=== PATIENT | male | born 1950 | race Hispanic/Latino ===

== ENCOUNTER → 2024-07-25 | Outpatient (CLI) | payer OTHER | END | disposition home or self-care (01) | LOC: SHCH 07:35 | PROVIDERS: ATTEND Student in an Organized Health Care Education/Training Program | DX: R55 Syncope and collapse (principal) | CPT/HCPCS: 93306 ==

== ENCOUNTER → 2024-08-13 | Outpatient (CLI) | payer OTHER ==
[2024-08-13 11:54] LABS: HEMOGLOBIN A1C 7.8 % (4.0-6.0)
[2024-08-13 12:03] LABS: ALBUMIN 3.4 g/dL (3.5-5.0); BILIRUBIN,TOTAL 0.3 mg/dL (0.2-1.0); CREATININE 1.1 mg/dL (0.5-1.3); POTASSIUM 4.3 mmol/L (3.5-5.1); TOTAL PROTEIN, SERUM 7.1 g/dL (6.0-8.3)
== END | disposition home or self-care (01) ==
LOC: LAB 09:45
PROVIDERS: ATTEND Student in an Organized Health Care Education/Training Program
DX: E11.65 Type 2 diabetes mellitus with hyperglycemia (principal); E78.5 Hyperlipidemia, unspecified; R55 Syncope and collapse
CPT/HCPCS: 36415; 80053; 80061; 83036

== ENCOUNTER → 2024-08-16 | Outpatient (CLI) | payer OTHER ==
[~2024-08-16] MED LIST: IOHEXOL 350 MG/ML 100ML INFUS..BTL IV ONE; metoPROLOL tartRATE 1 MG/ML 5ML VIAL IV ONE
--- NOTE | 2024-08-16 09:50 | HMCIMG ---
CT CARDIAC ANGIO W/CONT. CCTA HISTORY: Syncope COMPARISON: None TECHNIQUE: Multiple sequential axial images of the chest were obtained along with the CT angiogram of the chest study. Patient was given 100 cc of Omnipaque through intravenous route. FINDINGS: There is no evidence of pulmonary nodule or parenchymal disease. No pleural effusion or pericardial effusion is seen. There is no evidence of pneumothorax. There are normal size mediastinal and hilar lymph nodes. The heart is not enlarged. Degenerative changes of the thoracolumbar spine are present. IMPRESSION: 1. No evidence of pulmonary nodule or effusion is seen. Please see CT angiogram report of coronary arteries.
== END | disposition home or self-care (01) ==
LOC: RAH 07:59 → EDUNIT# 08:30
PROVIDERS: ATTEND Student in an Organized Health Care Education/Training Program
DX: R55 Syncope and collapse (principal); M47.815 Spondylosis without myelopathy or radiculopathy, thoracolumbar region
CPT/HCPCS: 75574; J3490 ×2; Q9967

== ENCOUNTER 2024-10-01 06:39 | Observation (INO) | payer OTHER ==
[2024-09-27 12:37] VITALS: BP 128/55; PULSE 98; RESP 18; TEMP 97.2
[2024-09-27 13:12] LABS: BASOPHILS # (AUTO) 0.03 K/uL (0.00-0.20); BASOPHILS % (AUTO) 0.3 % (0.0-5.0); EOSINOPHILS # (AUTO) 0.09 K/uL (0.00-0.70); HEMATOCRIT 43.7 % (42-54); IMMATURE GRANULOCYTE ABSOLUTE 0.03 K/uL (0-1); LYMPHOCYTES # (AUTO) 1.7 K/uL (1.0-4.8); LYMPHOCYTES % (AUTO) 18.4 % (21.0-51.0); MEAN CORPUSCULAR HEMOGLOBIN 30.4 pg (27.0-33.0); MEAN CORPUSCULAR HGB CONC 32.3 g/dL (32.0-36.0); MEAN CORPUSCULAR VOLUME 94.2 fL (79-99); MONOCYTES # (AUTO) 0.5 K/uL (0.1-1.0); MONOCYTES % (AUTO) 5.3 % (3.0-13.0); NEUTROPHILS # (AUTO) 6.9 K/uL (1.8-7.7); NEUTROPHILS % (AUTO) 74.7 % (40.0-77.0); PLATELET COUNT (AUTO) 213 K/uL (130-400); RED BLOOD CELL COUNT(AUTO) 4.64 MIL/uL (4.50-6.20); RED CELL DISTRIBUTION WIDTH 14.6 % (11.0-15.5); WHITE BLOOD COUNT (AUTO) 9.2 K/uL (4.8-10.8)
[2024-09-27 13:23] LABS: CREATININE 1.2 mg/dL (0.5-1.3); INR <= 0.93 (0.85-1.15); POTASSIUM 4.4 mmol/L (3.5-5.1); PROTHROMBIN TIME 10.4 SEC (9.6-11.6)
[2024-09-27 13:24] LABS: PARTIAL THROMBOPLASTIN TIME 29.5 SEC (26.3-35.5)
[2024-09-27 13:35] LABS: APPEARANCE,URINE CLEAR (CLEAR); BILIRUBIN,URINE NEGATIVE (NEGATIVE); COLOR,URINE YELLOW (YELLOW); GLUCOSE, URINE (UA) >=1000 mg/dL (NEGATIVE); KETONES,URINE NEGATIVE (NEGATIVE); LEUKOCYTE ESTERASE ,URINE NEGATIVE Leu/uL (NEGATIVE); NITRATE,URINE NEGATIVE (NEGATIVE); OCCULT BLOOD,URINE NEGATIVE (NEGATIVE); UROBILINOGEN,URINE 0.2 mg/dL (0.2-1.0)
--- NOTE | 2024-09-27 13:35 | EKG ---
[facility] Test Date: 2024-09-27 Test Time: 13:21:29 Pat Name: ROLANDO PENG Department: PENDING S[facility] TO [facility] Room: Gender: M Interlibrary Loan Specialist: [id number] : 1950 Requested By: KILEY MCKEON Order Number: [id number] Reading MD: Placido Masterson Measurements Intervals [place] Rate: 98 P: 56 MO: 193 QRS: 82 QRSD: 101 T: 29 QT: 355 QTc: 452 Interpretive Statements Sinus rhythm No previous ECG available for comparison Electronically Signed On 09-27-2024 19:49:16 REWEAVER by Placido Masterson Please click the below link to view image of tracing.
[2024-09-27 13:36] LABS: ADD UA MICROSCOPIC YES; PROTEIN,URINE NEGATIVE (NEGATIVE)
[2024-09-27 13:38] LABS: MUCUS,URINE RARE LPF (None Seen); RBC,URINE 0-1 /HPF (0-1); SQUAMOUS EPITHELIAL CELL,UR RARE /HPF (0-2); WBC,URINE 0-1 /HPF (0-1)
[2024-09-27 13:39] LABS: B-TYPE NATRIURETIC PEPTIDE 34 pg/mL (0-100)
--- NOTE | 2024-09-28 12:15 | HMCIMG ---
CHEST 1VW REASON: PRE OP COMPARISON: None. FINDINGS: Single view of the chest was obtained. Lungs are clear. Heart size is normal. There is no pulmonary vascular congestion. Mediastinum and bony thorax appear unremarkable. IMPRESSION: 1. Normal single view chest x-ray.
[2024-10-01] VITALS (16 sets, daily range): BP systolic 99–133; BP diastolic 50–84; PULSE 69–95; RESP 15–23; TEMP 97.1–99.1; O2SAT 97–100
[~2024-10-01] VITALS: Ht 180.3 cm; Wt 84.4 kg
[~2024-10-01 06:39] MED LIST changes: +ASPI-1443 PO; +EMPA25TA PO; +GLIP5TAB15 PO; +INSU3INS3 SQ; -IOHEXOL 350 MG/ML 100ML INFUS..BTL IV ONE; +METF-446 PO; +MULT-1367 PO; +ROSU10TA72 PO; +SIME80TA12 PO; +TIRZ10PE SQ; -metoPROLOL tartRATE 1 MG/ML 5ML VIAL IV ONE
[2024-10-01] MEDS ORDERED: IOHEXOL 350 MG/ML 100ML INFUS..BTL IV ONE ×2 (08:13→10:04)
[2024-10-01] MEDS ORDERED: LIDOCAINE HCL 400MG/20ML VIAL ONE (08:13)
[2024-10-01] MEDS ORDERED: VERAPAMIL HCL 2.5 MG/ML VIAL ONE (08:13)
[2024-10-01] MEDS ORDERED: HEParin-NS 1,000 UNIT/500 ML 1,000 ML IV ONE (08:13)
[2024-10-01] MEDS ORDERED: HEParin 10,000 UNIT/10ML (1,000 UNIT/ML) VIAL ONE (08:13)
[2024-10-01] MEDS ORDERED: NITROGLYCERIN 50MG VIAL ONE (08:14)
[2024-10-01] MEDS ORDERED: MIDAZOLAM HCL 1 MG/ML 2ML VIAL ONE (08:34)
[2024-10-01] MEDS ORDERED: FENTanyl CITRate PF 50 MCG/1 ML 2ML VIAL ONE (08:34)
[2024-10-01] MEDS: 0.9%NACL 1000ML 1,000 ML IV SCH ×2 (08:45→11:00)
[2024-10-01] MEDS ORDERED: EPTIFIBATIDE 2 MG/ML 10 ML VIAL IVP ONE (09:29)
[2024-10-01] MEDS ORDERED: EPTIFIBATIDE 75MG/100ML BOTTLE 100 ML IV ONE (09:29)
[2024-10-01] MEDS ORDERED: cloPIDOgrel 300MG TAB ONE (09:29)
[2024-10-01] MEDS ORDERED: NOREPINEPHRINE BITARTRATE 1 MG/1 ML ML IV ONE (10:02)
[2024-10-01] MEDS ORDERED: DOPamine HCL 400 MG/D5%-WATER 0 ML IV ONE (10:03)
--- NOTE | 2024-10-01 10:56 | PRN ---
PROCEDURE REPORT DATE OF PROCEDURE: Oct 01, 2024 CUPOLA TENDER HELPER: [Kiley olea MD ] PROCEDURE PERFORMED: Conscious sedation Ultrasound guided right radial artery access Selective left coronary artery angiogram Selective right coronary artery angiogram Left heart catheterization Status post IVUS guided PTCA/PCI of the prox to mid LAD x2 (3 x 30 mm subha Fron tier drug-eluting stent and 3 x 15 mm subha drug-eluting stent overlapping fashion) Complicated by LAD perforation which was managed successfully with PTCA/PCI x2 covered stents (3 x 20 and 3.5 x 20 mm papyrus covered stents) TR band 13 chintan over right radial artery INDICATION: Abnormal coronary CTA DESCRIPTION OF PROCEDURE: After informed consent was obtained, the patient was prepped and draped in the usual sterile fashion. A 6 Cypriot arterial sheath was inserted in the right radial artery using ultrasound guidance with first pass wall puncture. The arterial sheath was aspirated and flushed. A 6 Cypriot JL 3.5 was then advanced to the ascending aorta over an exchange length J-tip guidewire, was aspirated and flushed, and was used for selective coronary angiograms in multiple obliquities. A JR-4 was advanced in a similar fashion to the ascending aorta over the J-tipped guidewire and was used for selective right coronary angiograms in multiple oblique views with findings as outlined below. The JR-4 catheter advanced into the LV and pressures were obtained with a pull-back across the aortic valve. Following review of all the images decision was made to intervene on patient's critical prox to mid LAD disease. We exchanged the diagnostic catheters for a six Cypriot XB three guide catheter which was used to select engage the left main coronary artery. We provided a total of 9000 units of IV heparin, 300 mg of Plavix, and double bolus and infusion of Integrilin during the procedure. Following therapeutic ACT we advanced a [place] into the distal LAD under fluoroscopic guidance. We then pre-dilated the prox to mid LAD stenosis using a 3 x 20 mm compliant balloon to nominal pressures. We then proceeded with IVUS imaging of the mid to distal LAD as well as proximal LAD and left main. We noted a mid LAD of max diameter of 3.5 mm tapering to 3 mm. We deployed a 3 x 30 mm subha [place] drug-eluting stent within the mid LAD to nominal pressures. We noted residual disease just beyond the stent edge so we deployed a 2nd 3 x 15 mm subha [place] drug-eluting stent to nominal pressures. Following stent deployment we noted a large mid to distal LAD perforation. Patient was found to have significant ST elevations anteriorly with mild epigastric pain. We advanced a 3.5 x 27 mm noncompliant balloon which was inflated to sub nominal pressures of 6 CHINTAN in the distal segment of the stent for a total of 2 minutes to tamponade the vessel. We performed further post dilatation with a three five NC to nominal pressures proximally for a total of 20 seconds. Repeat angiogram revealed residual perforation within the mid segment of the LAD. We performed repeat balloon tamponade inflation for an additional minute with similar results. At this point we decided to treat the perforation with a 3 x 20 mm papyrus covered stent which was deployed to nominal pressures for a total of 30 seconds. Repeat angiogram noted residual ongoing perforation so we deployed a 2nd covered stent measuring 3.5 x 20 mm papyrus proximally to nominal pressures. We noted tamponade of the vessel and resolution of the ST elevations. Patient remained hemodynamically stable and his symptoms resolved. We performed a limited 2D echocardiogram during the procedure revealing no evidence of a pericardial effusion and he had a preserved systolic function on prelim review. Given these findings and gnosticist of KLAUDIA three flow the decision was made to terminate the procedure. All wires and catheters removed from the body and a TR band was placed over right radial artery. Patient tolerated procedure well and was transferred to pharmacy laboratory technician holding we will he be admitted overnight for observation and we will perform repeat 2D echocardiogram FLUOROSCOPY TIME: 16.1 min LEFT HEART HEMODYNAMICS: LVEDP 13 mm Hg and no gradient Ao CORONARY ANGIOGRAM: LEFT MAIN: Patent and 0% stenosis. Gives rise to LCx and LAD. LEFT ANTERIOR DESCENDING: Large vessel giving rise to two Diagonal branches. 50% ostial to prox becoming 90-95% in the prox to mid segment followed by 60 70% in the mid to distal segment. D1 and D2 were large and D1 has 50-60% prox to mid stenosis LEFT CIRCUMFLEX: Large and gives rise to three OM branches. Luminal irregularities. The OM2 are large and widely patent RIGHT CORONARY ARTERY: Large, dominant vessel giving rise to PDA and PL branches. There is a 40-50% mid RCA stenosis followed by luminal irregularities. PDA and PLB are patent HEMOSTASIS: TR band 12 chintan over right radial artery INTERVENTIONS: Status post IVUS guided PTCA/PCI of the prox to mid LAD x2 (3 x 30 mm subha [place] drug-eluting stent and 3 x 15 mm subha drug-eluting stent overlapping fashion) COMPLICATIONS: Complicated by LAD perforation which was managed successfully with PTCA/PCI x2 covered stents (3 x 20 and 3.5 x 20 mm papyrus covered stents) FINDINGS: Normal coronary anatomy and mild non-obstructive CAD. ESTIMATED BLOOD LOSS: 5 cc RECOMMENDATIONS/INSTRUCTIONS: Aggressive risk factor modification. Patient will require six months of dap (aspirin 81 mg daily/Plavix 75 mg daily) in addition to high-intensity statin therapy Given his LAD perforation which was successfully treated with two covered stents we performed a limited 2D echocardiogram during the procedure revealing no evidence of pericardial effusion We will admit patient overnight to observation and perform limited repeat 2D echocardiogram to assess for pericardial effusion If no pericardial effusion the patient remains asymptomatic we will plan for discharge tomorrow morning CONTRAST DELIVERED TO PATIENT (mL): 250cc KILEY Perez MD, MD Oct 01, 2024 10:56
[2024-10-01] MEDS ORDERED: GLUCAGON 1MG KIT 1 MG ML IM PRN (11:00)
[2024-10-01] MEDS ORDERED: DEXTROSE 50%-WATER 50 ML DISP.SYRIN IV PRN (11:00)
[2024-10-01] MEDS: SIMETHICONE 80 MG TAB.CHEW PO SCH (13:00)
--- NOTE | 2024-10-01 13:35 | NUR ---
CALLED TO ROOM BY PATIENT. NOTED PATIENT BLEEDING UNDER VASC BAND. 3 ML OF AIR INFLATED INTO VASC BAND, HEMOSTASIS ACHIEVED. INSTRUCTED PATIENT AND FAMILY TO CALL IF NOTED ANY FURTHER BLEEDING. PATIENT INSTRUCTED TO LEAVE HAND RESTING ON RIGHT SIDE WITH PALM FACING UP, VERBALIZED UNDERSTANDING. WILL CONTINUE TO MONITOR
--- NOTE | 2024-10-01 16:48 | NUR ---
HOSPITALIST PAGED AT THIS TIME
--- NOTE | 2024-10-01 16:50 | NUR ---
VASTBAND REMOVED AT THIS TIME VSS NAD SITE ASYMPTOMATIC.
--- NOTE | 2024-10-01 17:14 | HMCSR ---
APPROVED REPORT EXAM: Limited Two-dimensionalechocardiogram. INDICATION ICD: Asess for pericardial effusion Pericardium No pericardial effusion. Other Information Quality : Technically difficult study due to pts body habitus Conclusion No evidence of pericardial effusion present
--- NOTE | 2024-10-01 17:15 | HMCSR ---
APPROVED REPORT EXAM: Two-dimensional and M-mode echocardiogram with Doppler and color Doppler. INDICATION ICD: Pericardial effusion I31.3 2D Dimensions RVDd3.3 cmLVEF(%)31.4 (>50%)LVED Vol(simp.)76.4 mL IVSd0.8 (0.7-1.1cm)FS(%)15 %LVES Vol(simp.)35.6 mL LVDd4.1 (3.8-5.6cm)Ao Root(2D)3.6 (2.0-3.7cm)LVEF(%, simp.)53 % PWd1.1 (0.7-1.1cm)LVOT diam2.3 (1.8-2.4cm)LA ESV INDEX (4CH)16.70 mL/m2 IVSs1.0 cmLA ESV INDEX (2CH)14.30 mL/m2 LVDs3.5 (2.5-4.0cm)LA ESV INDEX (BP)15.60 mL/m2 PWs1.1 cm M-Mode Dimensions EPSS0.8 cm LA (MM)3.4 (1.6-4.0cm) Ao Root(MM)3.6 (2.0-3.7cm) Aortic Valve AoV VTI0.2 mAo Mean GR2.0 mmHgLVOT VTI0.16 m NELSON (VMAX)2.9 cm2AVA (VTI) 2.9 cm2 Mitral Valve MV E Vmax63.1 cm/sDECEL Covy210 ms MV A Vmax71.3 cm/sP 1/2 T81 ms E/A ratio0.9MVA (PHT)2.7 cm2 TDI E/E' Ylfgfs11.4E/E' Dmpgwgs61.4 Medial E' Peak V4.70 cm/sLateral E' Peak V4.10 cm/s Pulmonary Valve PV Vmax0.8 m/s PV Peak GR2.7 mmHg Left Ventricle Left ventricular cavity size is normal. No regional wall motion abnormalities noted. There is normal left ventricular wall thickness. LVEF is 50-55%. The left ventricular diastolic function is normal. Right Ventricle The right ventricle is normal size. The right ventricular systolic function is normal. Atria The left atrium size is normal. The right atrium size is normal. Aortic Valve The aortic valve is normal in structure. No aortic regurgitation is present. There is no aortic valvu lar stenosis. Mitral Valve The mitral valve is normal in structure. There is no mitral valve regurgitation noted. There is no mi tral valve stenosis. Tricuspid Valve The tricuspid valve is normal in structure. There is no tricuspid valve regurgitation noted. Pulmonic Valve The pulmonary valve is normal in structure. There is no pulmonic valvular regurgitation. Great Vessels The aortic root is normal in size. The IVC is normal in size and collapses <50% with inspiration. Pericardium There is no pericardial effusion. Conclusion LVEF is 50-55%. No regional wall motion abnormalities noted. There is no pericardial effusion.
--- NOTE | 2024-10-01 17:15 | NUR ---
DR. HUSSEIN AT BEDSIDE
--- NOTE | 2024-10-01 17:20 | NUR ---
REPORT TO [facility] 2ND FLOOR
--- NOTE | 2024-10-01 19:13 | HP ---
[facility] HISTORY AND PHYSICAL Date of Service: Oct 01, 2024 Time of Service: 19:05 HISTORY OF PRESENT ILLNESS: Date of service: 10/01/2024, patient was seen in day patient unit room 8, 74-year-old male with underlying history of hypertension, hyperlipidemia, type 2 diabetes mellitus who underwent cardiac catheterization today. Patient has a history of presyncope/syncopal symptoms in 04/2024 and patient underwent coronary CT angiogram which showed significant mid LAD stenosis. Patient underwent cardiac catheterization today which showed significant stenosis of the proximal to mid LAD. Patient underwent proximal to mid LAD placement of drug-eluting stent x2. The procedure was complicated by LAD perforation which was managed successfully with PTCA/PCI x2 covered stent. Patient had follow up 2D echocardiogram which showed no evidence of pericardial effusion. Patient will be monitored closely postprocedure tonight. Patient denies any active chest pain or shortness of breath. Patient does report having episodes of hypoglycemia at home with blood sugars less than 70. He has been cutting down on Lantus and only takes Lantus 10 units daily if needed at night. We will monitor blood glucose trend and patient reports having lost about 22 lb in the last several months. Patient is on outpatient [facility] for management of diabetes. Patient will be monitored closely under hospitalist service. REVIEW OF SYSTEMS CONSTITUTIONAL: Denies fevers, chills, or night sweats. No unintentional weight loss reported. NEUROLOGICAL: Denies headache, amaurosis fugax, motor weakness, sensory deficit, vertigo/spinning sensation, gait abnormalities, or tremors. ENT: No hearing loss, otalgia, otorrhea, rhinitis, rhinorrhea, hoarseness, or sore throat. CARDIOVASCULAR: Denies any exertional angina, dyspnea on exertion, orthopnea, paroxysmal nocturnal dyspnea, palpitations, life-threatening arrhythmias, claudication. PULMONARY: Denies any shortness of breath, cough, phlegm/sputum, hemoptysis, pleuritic chest pain. SLEEP: Denies morning headaches, daytime somnolence or napping. Denies difficulty falling asleep, staying asleep, waking from sleep. Denies knowledge of snoring. GASTROINTESTINAL: Denies any type of dysphagia to either liquids or solids. Denies nausea, vomiting, pyrosis, early satiety, abdominal pain, diarrhea, constipation, or changes in stool consistency or caliber. Denies coffee-ground emesis, hematemesis, hematochezia, or melanotic stools. GENITOURINARY: Denies frequency, urgency, nocturia, hematuria or incontinence (Storage/Irritative symptoms.) Low urinary stream, straining to void, urinary intermittency or hesitancy, splitting of the voiding stream, terminal dribbling. ENDOCRINOLOGIC: Denies polyuria, polydipsia, polyphagia or heat/cold intolerances. HEMATOLOGIC: Denies thrombophilia/previous clots, or coagulopathy/bleeding disorders. ONCOLOGIC: Denies personal history of malignancy. DERMATOLOGIC: Denies rashes or pruritus. PSYCHIATRIC: Denies any suicidal or homicidal ideation. Denies hallucinations. PAST MEDICAL HISTORY: Hypertension, hyperlipidemia, type 2 diabetes mellitus, peripheral arterial disease, coronary artery disease PAST SURGICAL HISTORY: Denies any history of significant surgeries PAST SOCIAL HISTORY: Currently denies active smoking, drinks on Wednesdays and Saturdays every week about three beers, denies any history of significant alcohol withdrawal FAMILY HISTORY: Denies pertinent family history Allergies: No known drug allergies Medications: Aspirin 81 mg daily, Jardiance 25 mg daily, glipizide 5 mg daily, patient reports using Lantus 10 units based on blood glucose trend daily, metformin 1000 mg b.i.d., multivitamin tablet once daily, rosuvastatin 20 mg q.h.s., simethicone 80 mg q.i.d., Mounjaro subcutaneous shot weekly Coded Allergies: No Known Drug Allergies (Unverified Allergy, Unknown, 09/27/24) PHYSICAL EXAM GENERAL APPEARANCE: The patient is awake, alert, and oriented, in no acute cardiopulmonary distress. NEUROLOGICAL: Cranial nerves II-XII grossly intact. Motor is 5/5 in bilateral upper and lower extremities proximal to distal. No sensory deficits. HEENT: Face is symmetric. Pupils are equal and reactive. Extraocular movements are intact. NECK: Supple. No JVD. No thyromegaly. No submental, submandibular, pre-/postauricular, occipital or supraclavicular lymphadenopathy. CHEST: Normal chest expansion. No Telemetry. LUNGS: Absence of any rales, rhonchi or any wheezing. CARDIOVASCULAR: Regular. S1 and S2 normal. No appreciable rubs, murmurs or gallops. ABDOMEN: Soft, nontender, and nondistended. There is no rebound, voluntary guarding, or rigidity. : Deferred. No Bernal. EXTREMITIES: Non-edematous and not cyanotic. No clubbing. Good capillary refill. SKIN: No skin breakdown. Vital Sign (Last 24 Hours) 10/01/24 10/01/24 16:55 17:50 Temp 98.1 Pulse 86 Resp 20 B/P (MAP) 118/71 Pulse Ox 98 O2 Delivery Room Air FiO2 21 LABS: Laboratory: Test 10/01/24 15:06 Range/Units Whole Blood Glucose 173 H 70-110 MG/DL Current Medications Medications (Trade) Dose Ordered Sig/Albino Route PRN Reason Start Time Stop Time Status Last Admin Dose Admin Aspirin (Aspirin 81mg Chew Tab) 81 mg DAILY PO 10/02/24 09:00 10/01/24 11:00 DC Aspirin (Aspirin 81mg Ec Tab) 81 mg DAILY PO 10/02/24 09:00 11/01/24 08:59 Atorvastatin Calcium (LIPItor 40MG) 40 mg HS PO 10/01/24 21:00 10/31/24 20:59 Clopidogrel Bisulfate (plaVIX 75MG) 75 mg DAILY PO 10/02/24 09:00 11/01/24 08:59 Dextrose (D50w) 50 ml AD PRN IV HYPOGLYCEMIA PROTOCOL 10/01/24 11:00 10/31/24 10:59 Empaglifozin (Jardiance 25mg) 25 mg DAILY PO 10/02/24 09:00 11/01/24 08:59 Glipizide (GLUCOtrol 5MG TABLET) 5 mg DAILY PO 10/02/24 09:00 11/01/24 08:59 Glucagon (Glucagon 1mg Kit) 1 mg AD PRN IM HYPOGLYCEMIA PROTOCOL 10/01/24 11:00 10/31/24 10:59 Insulin Glargine (LANtus 100 UNITS/ML 10 ML VIAL) 25 units HS SQ 10/01/24 21:00 10/01/24 17:34 DC Insulin Human Regular (humuLIN R 100 UNIT/ML 3ML) INSULIN SLIDING SCAL... ACHS SQ 10/01/24 21:00 10/31/24 20:59 Multivitamins Therapeutic (Multivitamin Tablet) 1 tab DAILY PO 10/02/24 09:00 11/01/24 08:59 Simethicone (Mylicon) 80 mg QID PO 10/01/24 13:00 10/31/24 12:59 Sodium Chloride 1,000 ml @ 0 mls/hr Q0M IV 10/01/24 08:00 10/31/24 07:59 10/01/24 08:45 30 MLS/HR Sodium Chloride 1,000 ml @ 150 mls/hr Q6H40M IV 10/01/24 11:00 10/01/24 14:59 DC DIAGNOSTICS / RADIOLOGY: SERVICE REASON: PERICARDIAL EFFUSION ORDERING PHYSICIAN: KILEY WOOD MD PROCEDURE: ECHO [facility] - ECHO 2-D COMPLETE APPROVED REPORT EXAM: Two-dimensional and M-mode echocardiogram with Doppler and color Doppler. INDICATION ICD: Pericardial effusion I31.3 2D Dimensions RVDd 3.3 cm LVEF(%) 31.4 (>50%) LVED Vol(simp.) 76.4 mL IVSd 0.8 (0.7-1.1cm) FS(%) 15 % LVES Vol(simp.) 35.6 mL LVDd 4.1 (3.8-5.6cm) Ao Root(2D) 3.6 (2.0-3.7cm) LVEF(%, simp.) 53 % PWd 1.1 (0.7-1.1cm) LVOT diam 2.3 (1.8-2.4cm) LA ESV INDEX (4CH) 16.70 mL/m2 IVSs 1.0 cm LA ESV INDEX (2CH) 14.30 mL/m2 LVDs 3.5 (2.5-4.0cm) LA ESV INDEX (BP) 15.60 mL/m2 PWs 1.1 cm M-Mode Dimensions EPSS 0.8 cm LA (MM) 3.4 (1.6-4.0cm) Ao Root(MM) 3.6 (2.0-3.7cm) Aortic Valve AoV VTI 0.2 m Ao Mean GR 2.0 mmHg LVOT VTI 0.16 m NELSON (VMAX) 2.9 cm2 NELSON (VTI) 2.9 cm2 Mitral Valve MV E Vmax 63.1 cm/s DECEL Time 222 ms MV A Vmax 71.3 cm/s P 1/2 T 81 ms E/A ratio 0.9 MVA (PHT) 2.7 cm2 TDI E/E' Medial 13.4 E/E' Lateral 15.4 Medial E' Peak V 4.70 cm/s Lateral E' Peak V 4.10 cm/s Pulmonary Valve PV Vmax 0.8 m/s PV Peak GR 2.7 mmHg Left Ventricle Left ventricular cavity size is normal. No regional wall motion abnormalities noted. There is normal left ventricular wall thickness. LVEF is 50-55%. The left ventricular diastolic function is normal. Right Ventricle The right ventricle is normal size. The right ventricular systolic function is normal. Atria The left atrium size is normal. The right atrium size is normal. Aortic Valve The aortic valve is normal in structure. No aortic regurgitation is present. There is no aortic valvular stenosis. Mitral Valve The mitral valve is normal in structure. There is no mitral valve regurgitation noted. There is no mitral valve stenosis. Tricuspid Valve The tricuspid valve is normal in structure. There is no tricuspid valve regurgitation noted. Pulmonic Valve The pulmonary valve is normal in structure. There is no pulmonic valvular regurgitation. Great Vessels The aortic root is normal in size. The IVC is normal in size and collapses <50% with inspiration. Pericardium There is no pericardial effusion. Conclusion LVEF is 50-55%. No regional wall motion abnormalities noted. There is no pericardial effusion. DICTATED BY: NOEL DENNIS MD DATE: 10/01/24 1131 ELECTRONICALLY SIGNED BY: NOEL DENNIS MD DATE: 10/01/24 3041 ASSESSMENT: History of abnormal coronary CT angiogram, POA History of presyncope/syncope, POA Status post PCI w/IVUS guided PTCA/PCI of the prox to mid LAD x2 (3 x 30 mm subha [place] drug-eluting stent and 3 x 15 mm subha drug-eluting stent overlapping fashion), by Dr. Wood, 10/01/2024 Complicated by LAD perforation which was managed successfully with PTCA/PCI x2 covered stents (3 x 20 and 3.5 x 20 mm papyrus covered stents), by Dr. Wood, 10/01/2024 History of peripheral arterial disease, POA Hypertension, POA Hyperlipidemia, POA Type 2 diabetes mellitus, POA History of outpatient hypoglycemia, POA PLAN: Patient will be admitted under close observation in PCCU We will obtain a repeat 2D echocardiogram tomorrow to rule out any significant developing pericardial effusion Continue with dual antiplatelet therapy with aspirin and Plavix Patient denies active chest pain, shortness of breath on bedside assessment Continue with home diabetic medications excluding metformin Hold Lantus 25 units tonight, patient reports having issues with hypoglycemia due to weight loss from Mounjaro, we will check a A1c, we will start sliding scale insulin a.c. HS Resume rest of home medication including statin therapy All labs will be repeated in the morning Anticipate DC in 24 hours tomorrow if patient remains stable Date of service: 10/01/2024 Plan of care was discussed with patient and at bedside, Leeroy Lee MD Advanced Care Planning: Which of the following were discussed: Hospice care: Yes __ No _X_ Therapeutic options: Yes _X_ No __ Advance directives: Yes _X_ No __ Other discussions: Discussed with who?: Patient Voluntary nature of this service was explained to the patient? Yes _x_ No __ Amount of time spent: 20 minutes LEEROY LEE MD Oct 01, 2024 19:13
[2024-10-01] MEDS ORDERED: INSULIN GLARgine 100 UNITS/ML 10 ML VIAL SQ SCH (21:00)
[2024-10-01] MEDS: INSULIN humuLIN R 100 UNIT/ML 3ML SQ SCH (21:00)
[2024-10-01] MEDS: atorVAStatin 40 MG TABLET PO SCH (21:52)
[2024-10-02 03:54] LABS: BASOPHILS # (AUTO) 0.01 K/uL (0.00-0.20); BASOPHILS % (AUTO) 0.1 % (0.0-5.0); EOSINOPHILS # (AUTO) 0.16 K/uL (0.00-0.70); EOSINOPHILS % (AUTO) 1.7 % (0.0-8.0); HEMATOCRIT 38.3 % (42-54); IMMATURE GRANULOCYTE ABSOLUTE 0.03 K/uL (0-1); LYMPHOCYTES # (AUTO) 2.1 K/uL (1.0-4.8); LYMPHOCYTES % (AUTO) 22.5 % (21.0-51.0); MEAN CORPUSCULAR HEMOGLOBIN 30.3 pg (27.0-33.0); MEAN CORPUSCULAR HGB CONC 33.2 g/dL (32.0-36.0); MEAN CORPUSCULAR VOLUME 91.4 fL (79-99); MONOCYTES # (AUTO) 0.7 K/uL (0.1-1.0); NEUTROPHILS # (AUTO) 6.2 K/uL (1.8-7.7); NEUTROPHILS % (AUTO) 67.4 % (40.0-77.0); PLATELET COUNT (AUTO) 213 K/uL (130-400); RED BLOOD CELL COUNT(AUTO) 4.19 MIL/uL (4.50-6.20); RED CELL DISTRIBUTION WIDTH 14.1 % (11.0-15.5); WHITE BLOOD COUNT (AUTO) 9.3 K/uL (4.8-10.8)
[2024-10-02 04:00] VITALS: BP 124/54; PULSE 81; RESP 21; TEMP 98.8
[2024-10-02 04:13] LABS: HEMOGLOBIN A1C 7.9 % (4.0-6.0)
[2024-10-02 04:31] LABS: ALBUMIN 3.2 g/dL (3.5-5.0); BILIRUBIN,TOTAL 0.5 mg/dL (0.2-1.0); CREATININE 1.1 mg/dL (0.5-1.3); MAGNESIUM 2.2 mg/dL (1.80-2.40); POTASSIUM 3.8 mmol/L (3.5-5.1); THYROID STIMULATING HORMONE 0.92 uIU/mL (0.36-3.74); TOTAL PROTEIN, SERUM 6.7 g/dL (6.0-8.3)
[2024-10-02 07:20] VITALS: O2SAT 100
[2024-10-02 07:31] VITALS: BP 120/78; PULSE 89; RESP 20; TEMP 98
[2024-10-02] MEDS: cloPIDOgrel 75MG TAB PO SCH (08:32)
[2024-10-02] MEDS: ASPIRIN 81 MG EC TAB PO SCH (08:32)
[2024-10-02] MEDS: MULTIVITAMIN TABLET PO SCH (08:33)
[2024-10-02] MEDS: EMPAGLIFLOZIN 25MG TABLET PO SCH (08:33)
[2024-10-02] MEDS: glipiZIDE 5MG TABLET PO SCH (08:33)
[2024-10-02] MEDS: metOPROLol sucCINATE 25 MG TAB.SR.24H PO SCH (08:53)
[2024-10-02] MEDS ORDERED: ASPIRIN 81MG CHEW TAB PO SCH (09:00)
--- NOTE | 2024-10-02 09:01 | PN ---
[facility] CARDIOLOGY PROGRESS NOTE Date Patient Seen: Oct 02, 2024 Time of Visit: 08:51 Problem List: CAD Status post PCI w/IVUS guided PTCA/PCI of the prox to mid LAD x2 (3 x 30 mm subha Dundy drug-eluting stent and 3 x 15 mm subha drug-eluting stent over lapping fashion), by Dr. Wood, 10/01/2024 Complicated by LAD perforation which was managed successfully with PTCA/PCI x2 covered stents (3 x 20 and 3.5 x 20 mm papyrus covered stents), by Dr. Wood, 10/01/2024 History of peripheral arterial disease, Hypertension, Hyperlipidemia, Type 2 diabetes mellitus ] Interval History: The patient underwent coronary angiogram yesterday and is s/p PCI of prox to mid LAD x 2 , the procedure was complicated with LAD perforation and managed with PTCA / PCI x 2 covered stents, 2D echo x intra procedure and another 2D echo 6 hrs post procedure , no pericardial effusion noted with a preserved systolic function. Repeat ECG with no acute ischemia and AUDRA has resolved. He denies any cardiac symptoms or anginal equivalents. Physical Examination: GENERAL: [No acute distress.] HEAD: [Normal with no signs of head trauma.] EYES: [PERRLA, EOMI, conjunctiva and sclera normal.] ENT: [Hearing grossly intact, normal oropharynx.] NECK: [Supple without JVD. There is no tenderness, lymphadenopathy, or masses. No thyromegaly. Normal carotid upstrokes without bruits.] LUNGS: [Clear breath sounds bilaterally. There are right basilar rales one third of the way up the chest. No wheezes, or rhonchi.] HEART: [Normal rate and rhythm. Normal S1 and S2 without mumurs, gallop or rub.] VASC: [Peripheral pulses +2 bilaterally.] ABD: [Bowel sounds normal, soft, nontender, no masses, no organomegaly. No audible bruits.] : [Not examined] LYMPH: [No lymphadenopathy noted.] EXT: [No clubbing, cyanosis or edema.] SKIN: [No rashes or lesions noted.] NEURO: [Awake, alert, and oriented x3. No focal sensory or strength deficits noted.] Laboratory: [ ] Hematology Labs: Test 10/02/24 03:31 Range/Units White Blood Count 9.3 4.8-10.8 K/uL Red Blood Count 4.19 L 4.50-6.20 MIL/uL Hemoglobin 12.7 L 14.0-18.0 g/dL Hematocrit 38.3 L 42-54 % Mean Corpuscular Volume 91.4 79-99 fL Mean Corpuscular Hemoglobin 30.3 27.0-33.0 pg Mean Corpuscular Hemoglobin Concent 33.2 32.0-36.0 g/dL Red Cell Distribution Width 14.1 11.0-15.5 % Platelet Count 213 130-400 K/uL Mean Platelet Volume 10.1 7.5-10.5 fL Immature Granulocyte % (Auto) 0.3 0-1 % Neutrophils (%) (Auto) 67.4 40.0-77.0 % Lymphocytes (%) (Auto) 22.5 21.0-51.0 % Monocytes (%) (Auto) 8.0 3.0-13.0 % Eosinophils (%) (Auto) 1.7 0.0-8.0 % Basophils (%) (Auto) 0.1 0.0-5.0 % Neutrophils # (Auto) 6.2 1.8-7.7 K/uL Lymphocytes # (Auto) 2.1 1.0-4.8 K/uL Monocytes # (Auto) 0.7 0.1-1.0 K/uL Eosinophils # (Auto) 0.16 0.00-0.70 K/uL Basophils # (Auto) 0.01 0.00-0.20 K/uL Absolute Immature Granulocyte (auto 0.03 0-1 K/uL Nucleated Red Blood Cells 0.0 0.0-0.19 % Chemistry Labs: Test 10/02/24 05:32 10/02/24 03:31 Range/Units Whole Blood Glucose 128 H 70-110 MG/DL Sodium Level 137 136-145 mmol/L Potassium Level 3.8 3.5-5.1 mmol/L Chloride Level 102 101-111 mmol/L Carbon Dioxide Level 24 21-32 mmol/L Blood Urea Nitrogen 28 H 7-18 mg/dL Creatinine 1.1 0.5-1.3 mg/dL Glomerular Filtration Rate Calc 71 >90 mL/min Random Glucose 112 H 70-105 mg/dL Hemoglobin A1c 7.9 H 4.0-6.0 % Estimated Average Glucose (eAG) 180 H 70-126 mg/dL Total Calcium 8.9 8.5-10.1 mg/dL Magnesium Level 2.20 1.80-2.40 mg/dL Total Bilirubin 0.5 0.2-1.0 mg/dL Aspartate Amino Transf (AST/SGOT) 17 10-37 U/L Alanine Aminotransferase (ALT/SGPT) 20 12-78 U/L Alkaline Phosphatase 107 50-136 U/L Total Protein 6.7 6.0-8.3 g/dL Albumin 3.2 L 3.5-5.0 g/dL Thyroid Stimulating Hormone (TSH) 0.92 0.36-3.74 uIU/mL Diagnostics / Radiology: [Copy/Paste Echos/Imaging Report here] Impression and Plan: [CAD Status post PCI w/IVUS guided PTCA/PCI of the prox to mid LAD x2 (3 x 30 mm subha Dundy drug-eluting stent and 3 x 15 mm subha drug-eluting stent overlapping fashion), by Dr. Wood, 10/01/2024 Complicated by LAD perforation which was managed successfully with PTCA/PCI x2 covered stents (3 x 20 and 3.5 x 20 mm papyrus covered stents), by Dr. Wood, 10/01/2024 History of peripheral arterial disease, Hypertension, Hyperlipidemia, Type 2 diabetes mellitus ] ] [# CAD Status post PCI w/IVUS guided PTCA/PCI of the prox to mid LAD x2 , by Dr. Wood, 10/01/2024 Complicated by LAD perforation which was managed successfully with PTCA/PCI x2 covered stents (3 x 20 and 3.5 x 20 mm papyrus covered stents), by Dr. Wood, 10/01/2024 ] 2D echo x intra procedure and another 2D echo 6 hrs post procedure , no pericardial effusion noted with a preserved systolic function Currently denies any cardiac symptoms or anginal equivalents. Repeat ECG this AM with no ischemia and AUDRA have resolved. Repeaty ECG showed resilution of ST elevations seen during the procedure. The patient will require DAPT x 6 months ( ASA-Plavixx) and Atorvastatin 40 mg daily Start Toprol XL 25 mg daily Thank you for this consult , cardiology will sign of at this time. He will have close outpt Cardiology follow up within 1-2 weeks post DC with me ATTESTATION BY PHYSICIAN I have seen and examined the patient, reviewed the above documentation, participated in medical decision making, made necessary modifications, and agree with the treatment plan as documented by my mid-level provider above. MD MIKE Perales JAMES R MD Oct 02, 2024 09:01
[2024-10-02] MEDS ORDERED: METO25TA3 PO (09:21)
[2024-10-02] MEDS ORDERED: CLOP-31 PO (09:21)
--- NOTE | 2024-10-02 09:23 | NUR ---
DR. MCKEON HERE AND SPOKE TO AND STATED THAT HE COULD GO HOME TODAY AND WOULD BE DISCHARGED BY HOSPITALIST. ADVISED DR. MCKEON PT WAS NOT ON TOPROL AND ORDER NOTED.
--- NOTE | 2024-10-02 10:21 | EKG ---
[facility] Test Date: 2024-10-02 Test Time: 09:45:12 Pat Name: ROLANDO PENG Department: [facility] Room: 222 1 Gender: M Extract Puller: [id number] : 1950 Requested By: KILEY MCKEON Order Number: [id number] Reading MD: Fabien Langston Measurements Intervals [place] Rate: 81 P: 43 NM: 180 QRS: 67 QRSD: 112 T: 72 QT: 384 QTc: 446 Interpretive Statements Sinus rhythm with occasional premature ventricular complexes ST elevation, consider early repolarization, pericarditis, or injury Compared to ECG 09/27/2024 13:21:29 Ventricular premature complex(es) now present ST (T wave) deviation now present Electronically Signed On 10-05-2024 17:30:20 BILLING AND QUALITY TECHNICIAN by Fabien Langston Please click the below link to view image of tracing.
--- NOTE | 2024-10-02 10:28 | NUR ---
DCP: HOME Sw met with pt and Kelsie Ramon 0629. Pt is a [place] that receives medical care and meds thru local [facility] with Dr Dennis Olivares. Pt has a walker with seat, shower chair, grab bars on toilet, no HH or HD services. Pt denies dc needs and will return home with . to assist as needed. Addendum: 10/02/24 at 1034 by JOSE VALDEZ Amended: Links added.
--- NOTE | 2024-10-02 10:43 | NUR ---
PT WAS DISCHARGED AFTER PT WAS ADVISED OF MEDS BEING SENT TO [place] [facility] AND TO HOLD METFORMIN FOR AT LEAST 2 MORE DAYS AFTER HE HAD HIS HEART CATH, PT VERBALIZED UNDERSTANDING. PT WAS TAKEN TO PRIVATE VEHICLE BY W/C AND IN NO APPARENT DISTRESS.
--- NOTE | 2024-10-02 15:04 | DS ---
Discharge Summary Hospital Course Summary: 74-year-old male with underlying history of hypertension, hyperlipidemia, type 2 diabetes mellitus who underwent cardiac catheterization. Patient has a history of presyncope/syncopal symptoms in 04/20[address] and patient underwent coronary CT angiogram which showed significant mid LAD stenosis. Patient underwent cardiac catheterization which showed significant stenosis of the proximal to mid LAD. Patient underwent proximal to mid LAD placement of drug-eluting stent x2. The procedure was complicated by LAD perforation which was managed successfully with PTCA/PCI x2 covered stent. Patient had follow up 2D echocardiogram which showed no evidence of pericardial effusion. Patient was admitted and monitored overnight with no complications. The following morning he was assessed by both the hospitalist and Cardiology Service and found to be stable and cleared for discharge. He will be discharged home to follow up with Cardiology in 1-2 weeks . He will be discharged home with metoprolol and Plavix in addition to his normal home medications. Magnetic Tape Winder(s): Cardiology Procedure(s): Echocardiogram: Conclusion LVEF is 50-55%. No regional wall motion abnormalities noted. There is no pericardial effusion. CHEST 1VW REASON: PRE OP COMPARISON: None. FINDINGS: Single view of the chest was obtained. Lungs are clear. Heart size is normal. There is no pulmonary vascular congestion. Mediastinum and bony thorax appear unremarkable. IMPRESSION: 1. Normal single view chest x-ray. Assessment/Plan: ASSESSMENT: History of abnormal coronary CT angiogram, POA History of presyncope/syncope, POA Status post PCI w/IVUS guided PTCA/PCI of the prox to mid LAD x2 (3 x 30 mm subha Sumner drug-eluting stent and 3 x 15 mm subha drug-eluting stent overlapping fashion), by Dr. Wood, 10/01/2024 Complicated by LAD perforation which was managed successfully with PTCA/PCI x2 covered stents (3 x 20 and 3.5 x 20 mm papyrus covered stents), by Dr. Wood, 10/01/2024 History of peripheral arterial disease, POA Hypertension, POA Hyperlipidemia, POA Type 2 diabetes mellitus, POA History of outpatient hypoglycemia, POA Discharge Instructions: Follow up with PCP in 3-7 days Follow up with documentation improvement specialist in 1-2 weeks Home Medications: Active Scripts Metoprolol Succinate (Toprol Xl) 25 Mg Tab.er.24h, 25 MG PO DAILY, #30 TAB Prov:BRENDA KAISER MD 10/02/24 Clopidogrel Bisulfate (Plavix) 75 Mg Tablet, 75 MG PO DAILY, #30 TAB Prov:BRENDA KAISER MD 10/02/24 Reported Medications Rosuvastatin Calcium (Rosuvastatin Calcium) 10 Mg Tablet, 20 MG PO HS, TAB 09/27/24 Simethicone (Simethicone) 80 Mg Tab.chew, 80 MG PO QID, TAB.CHEW 09/27/24 Multivitamin (Multivitamin) 1 Each Tablet, 1 EACH PO DAILY, TAB 09/27/24 Aspirin (Aspirin EC) 81 Mg Tablet.dr, 81 MG PO DAILY, TAB 09/27/24 Empagliflozin (Jardiance) 25 Mg Tablet, 25 MG PO DAILY, TAB 09/27/24 Insulin Glargine,Hum.rec.anlog (Lantus Solostar) 100 Unit/Ml (3 Ml) Insuln.pen, 25 UNIT SQ HS, SYRINGE 09/27/24 Tirzepatide (Mounjaro) 10 Mg/0.5 Ml Pen.injctr, 10 MG SQ QWEEK 09/27/24 Glipizide (Glipizide) 5 Mg Tablet, 5 MG PO DAILY, TAB 09/27/24 Metformin HCl (Metformin HCl) 1,000 Mg Tablet, 1000 MG PO BID, TAB 09/27/24 New Medications: Clopidogrel Bisulfate (Plavix) 75 Mg Tablet 75 MG PO DAILY, #30 TAB Metoprolol Succinate (Toprol Xl) 25 Mg Tab.er.24h 25 MG PO DAILY, #30 TAB Continued Medications: Aspirin (Aspirin EC) 81 Mg Tablet.dr 81 MG PO DAILY, TAB Empagliflozin (Jardiance) 25 Mg Tablet 25 MG PO DAILY, TAB Glipizide (Glipizide) 5 Mg Tablet 5 MG PO DAILY, TAB Insulin Glargine,Hum.rec.anlog (Lantus Solostar) 100 Unit/Ml (3 Ml) Insuln.pen 25 UNIT SQ HS, SYRINGE Metformin HCl (Metformin HCl) 1,000 Mg Tablet 1000 MG PO BID, TAB Multivitamin (Multivitamin) 1 Each Tablet 1 EACH PO DAILY, TAB Rosuvastatin Calcium (Rosuvastatin Calcium) 10 Mg Tablet 20 MG PO HS, TAB Simethicone (Simethicone) 80 Mg Tab.chew 80 MG PO QID, TAB.CHEW Tirzepatide (Mounjaro) 10 Mg/0.5 Ml Pen.injctr 10 MG SQ QWEEK Time spent arranging discharge: 31-60 minutes BRENDA KAISER MD Oct 02, 2024 15:04
== END 2024-10-02 10:45 | disposition home or self-care (01) ==
LOC: DAH 06:39 → DAHIP 06:40 → DAH 06:40 → 2DH 17:50
PROVIDERS: ADMIT Student in an Organized Health Care Education/Training Program; ATTEND Student in an Organized Health Care Education/Training Program
DX: I25.10 Atherosclerotic heart disease of native coronary artery without angina pectoris (principal); E11.51 Type 2 diabetes mellitus with diabetic peripheral angiopathy without gangrene; I73.9 Peripheral vascular disease, unspecified; R55 Syncope and collapse; I25.83 Coronary atherosclerosis due to lipid rich plaque; E78.5 Hyperlipidemia, unspecified; I10 Essential (primary) hypertension; M79.605 Pain in left leg; Z79.4 Long term (current) use of insulin; Z98.61 Coronary angioplasty status
CPT/HCPCS: 80048; 83880; 85025 ×2; 85610; 85730; 81001; 36415 ×3; 71045; 93005 ×2; 92978; 92979; 93458; 96360; 96361; 85347; 82948 ×5; 93306; 93308; 83036; 84443; 83735; 80053; C1874 ×4; C1769 ×2; C1725 ×3; C1894; A4649; C1887; C1753; Q9965 ×3; G0378 ×24; J3010; J3490 ×3; J7030; J1644 ×2; J2250; J1327 ×2; Q9967 ×2; A4215; A4223 ×3; A4222; A4221; A4663; A4216; A4606; C9600; 99156; 99157; J1265

== ENCOUNTER → 2024-11-26 | Outpatient (CLI) | payer OTHER ==
[~2024-11-26] MED LIST changes: +CLOP-31 PO; +METO25TA3 PO
[2024-11-26 16:24] LABS: BASOPHILS # (AUTO) 0.03 K/uL (0.00-0.20); BASOPHILS % (AUTO) 0.3 % (0.0-5.0); EOSINOPHILS # (AUTO) 0.26 K/uL (0.00-0.70); EOSINOPHILS % (AUTO) 2.7 % (0.0-8.0); HEMATOCRIT 41.4 % (42-54); IMMATURE GRANULOCYTE ABSOLUTE 0.03 K/uL (0-1); LYMPHOCYTES # (AUTO) 2.6 K/uL (1.0-4.8); LYMPHOCYTES % (AUTO) 26.6 % (21.0-51.0); MEAN CORPUSCULAR HEMOGLOBIN 30.5 pg (27.0-33.0); MEAN CORPUSCULAR HGB CONC 32.6 g/dL (32.0-36.0); MEAN CORPUSCULAR VOLUME 93.5 fL (79-99); MONOCYTES # (AUTO) 0.6 K/uL (0.1-1.0); NEUTROPHILS # (AUTO) 6.2 K/uL (1.8-7.7); NEUTROPHILS % (AUTO) 64.1 % (40.0-77.0); PLATELET COUNT (AUTO) 259 K/uL (130-400); RED BLOOD CELL COUNT(AUTO) 4.43 MIL/uL (4.50-6.20); RED CELL DISTRIBUTION WIDTH 13.7 % (11.0-15.5); WHITE BLOOD COUNT (AUTO) 9.7 K/uL (4.8-10.8)
[2024-11-26 16:32] LABS: POTASSIUM 4.6 mmol/L (3.5-5.1)
[2024-11-26 16:34] LABS: INR <= 0.93 (0.85-1.15); PROTHROMBIN TIME 9.9 SEC (9.6-11.6)
[2024-11-26 16:35] LABS: PARTIAL THROMBOPLASTIN TIME 29.1 SEC (26.3-35.5)
== END | disposition home or self-care (01) ==
LOC: LAB 11:49
PROVIDERS: ATTEND Student in an Organized Health Care Education/Training Program
DX: Z01.812 Encounter for preprocedural laboratory examination (principal); I73.9 Peripheral vascular disease, unspecified; M79.605 Pain in left leg; Z79.899 Other long term (current) drug therapy
CPT/HCPCS: 36415; 80048; 85025; 85610; 85730

== ENCOUNTER → 2024-12-31 | Outpatient (CLI) | payer OTHER ==
[2024-12-31 15:08] LABS: BASOPHILS # (AUTO) 0.03 K/uL (0.00-0.20); BASOPHILS % (AUTO) 0.3 % (0.0-5.0); EOSINOPHILS % (AUTO) 1.9 % (0.0-8.0); HEMATOCRIT 41.8 % (42-54); IMMATURE GRANULOCYTE ABSOLUTE 0.04 K/uL (0-1); LYMPHOCYTES # (AUTO) 2.4 K/uL (1.0-4.8); MEAN CORPUSCULAR HEMOGLOBIN 30.6 pg (27.0-33.0); MEAN CORPUSCULAR HGB CONC 33.5 g/dL (32.0-36.0); MEAN CORPUSCULAR VOLUME 91.5 fL (79-99); MONOCYTES # (AUTO) 0.6 K/uL (0.1-1.0); MONOCYTES % (AUTO) 5.6 % (3.0-13.0); NEUTROPHILS # (AUTO) 7.5 K/uL (1.8-7.7); NEUTROPHILS % (AUTO) 69.8 % (40.0-77.0); PLATELET COUNT (AUTO) 273 K/uL (130-400); RED BLOOD CELL COUNT(AUTO) 4.57 MIL/uL (4.50-6.20); RED CELL DISTRIBUTION WIDTH 13.4 % (11.0-15.5); WHITE BLOOD COUNT (AUTO) 10.8 K/uL (4.8-10.8)
[2024-12-31 15:15] LABS: CREATININE 1.1 mg/dL (0.5-1.3); POTASSIUM 4.4 mmol/L (3.5-5.1)
[2024-12-31 15:17] LABS: INR 0.96 (0.85-1.15); PROTHROMBIN TIME 10.2 SEC (9.6-11.6)
[2024-12-31 15:18] LABS: PARTIAL THROMBOPLASTIN TIME 27.1 SEC (26.3-35.5)
== END | disposition home or self-care (01) ==
LOC: LAB 14:17
PROVIDERS: ATTEND Student in an Organized Health Care Education/Training Program
DX: E11.65 Type 2 diabetes mellitus with hyperglycemia (principal); E78.5 Hyperlipidemia, unspecified; I73.9 Peripheral vascular disease, unspecified
CPT/HCPCS: 36415; 80048; 85025; 85610; 85730